=== PATIENT | female | born 1940 | race African-American/Black ===

== ENCOUNTER 2017-05-08 12:59 | Inpatient (IN) | payer OTHER ==
[~2017-05-08] VITALS: Ht 162.6 cm; Wt 75.8 kg
[2017-05-08 14:27] LABS: BASOPHILS % 0.2 % (0.0-2.0); EOSINOPHILS % 2.6 % (0.0-5.0); HEMATOCRIT. 36.9 % (36.0-48.0); HEMOGLOBIN. 12.1 g/dL (12.0-16.0); LYMPHOCYTES % 8.4 % (20.0-50.0); MEAN CORPUSCULAR HEMOGLOBIN 27.9 pg (28.0-32.0); MEAN CORPUSCULAR VOLUME 85.4 fL (81.0-99.0); MEAN PLATELET VOLUME 7.5 fl (7.4-10.4); MONOCYTES % 7.5 % (2.0-8.0); NEUTROPHILS % 81.3 % (40.0-76.0); PLATELET 231 x1000/uL (130-400); RED BLOOD CELL COUNT 4.33 mill/uL (4.2-5.4); RED CELL DISTRIBUTION WIDTH 16.3 % (11.6-14.6)
[2017-05-08 14:33] LABS: CHLORIDE 103 mEq/L (98-107); CREATINE KINASE 144 IU/L (26-192); ETHANOL BLOOD < 10 mg/dL
[2017-05-08] MEDS ORDERED: ASPIRIN 81MG TABLET PO ONE (15:15)
[2017-05-08 15:53] LABS: CLARITY URINE CLEAR (CLEAR); COLOR URINE YELLOW (YELLOW); KETONES URINE NEGATIVE (NEGATIVE); LEUKOCYTE ESTERASE URINE NEGATIVE (NEGATIVE); NITRITE URINE NEGATIVE (NEGATIVE); OCCULT BLOOD URINE NEGATIVE (NEGATIVE); PROTEIN URINE NEGATIVE (NEGATIVE); SPECIFIC GRAVITY URINE 1.017 (1.005-1.030); UROBILINOGEN URINE 0.2 E.U./dL (0.2-1.0)
[2017-05-08] MEDS ORDERED: DIPHENHYDRAMINE 50MG/ML VIAL IV PRN (16:00)
[2017-05-08] MEDS ORDERED: TRAMADOL 50MG TABLET PO PRN (16:00)
[2017-05-08] MEDS ORDERED: ZOLPIDEM TARTRATE 5MG TABLET PO PRN (16:00)
[2017-05-08] MEDS ORDERED: NITROGLYCERIN 0.4MG TABLET SL SL PRN (16:00)
[2017-05-08] MEDS ORDERED: DOCUSATE SODIUM 100MG CAPSULE PO PRN (16:00)
[2017-05-08] MEDS ORDERED: ONDANSETRON HCL 4MG/2ML INJ IV PRN (16:00)
[2017-05-08] MEDS ORDERED: MAGNESIUM/ALUMINUM HYDROXIDE/SIMETHICONE 30ML UDC PO PRN (16:00)
[2017-05-08] MEDS ORDERED: NA PHOS,M-B/NA PHOS,DI-BA ENEMA 118ML PR PRN (16:00)
[2017-05-08] MEDS ORDERED: CLONIDINE 0.1MG TABLET PO PRN (16:00)
[2017-05-08] MEDS ORDERED: GUAIFENESIN 200MG/10ML SUGAR FREE UDC PO PRN (16:00)
[2017-05-08] MEDS ORDERED: POTASSIUM CHLORIDE 20MEQ TABLET SR PO ONE (16:15)
[2017-05-08] MEDS ORDERED: POTASSIUM CHLORIDE 20MEQ TABLET SR PO NR (16:45)
[2017-05-08 18:39] LABS: *AMPHETAMINES SCREEN URINE NEGATIVE (NEGATIVE); *BARBITURATES SCREEN URINE NEGATIVE (NEGATIVE); *BENZODIAZEPINES SCREEN URINE NEGATIVE (NEGATIVE); *COCAINE SCREEN URINE NEGATIVE (NEGATIVE); CANNABINOID URINE SCREEN NEGATIVE (NEGATIVE); METHADONE URINE SCREEN NEGATIVE (NEGATIVE); OPIATES URINE SCREEN NEGATIVE (NEGATIVE); PHENCYCLIDINE URINE SCREEN NEGATIVE (NEGATIVE)
[2017-05-08] MEDS: SODIUM CHLORIDE 0.9% 1,000 ML IV SCH (20:00)
[2017-05-08 20:35] VITALS: BP 145/69
[2017-05-08] MEDS: FAMOTIDINE 20MG/2ML VIAL IV SCH (21:48)
[2017-05-08] MEDS ORDERED: LEVOFLOXACIN 500MG PREMIX 100 ML IV SCH (22:00)
[2017-05-08] MEDS: ENOXAPARIN 40MG/0.4ML SYR SUBCUT SCH (22:51)
[2017-05-08] MEDS ORDERED: KCL 20MEQ/100ML PREMIX 100 ML IV NR (23:00)
[2017-05-08] MEDS ORDERED: CEFTRIAXONE 1 G PREMIX 50 ML IV SCH (23:00)
[2017-05-08 23:24] VITALS: BP 145/69
[2017-05-08 23:49] LABS: CREATINE KINASE MB FRACTION 3.2 ng/mL (0.5-3.6)
[2017-05-09] VITALS: BP 122/64
[2017-05-09] MEDS ORDERED: ESOM20CA PO (00:49)
[2017-05-09] MEDS ORDERED: ATEN50TA PO (00:49)
[2017-05-09] MEDS ORDERED: OMEP20CA10 PO (00:49)
[2017-05-09] MEDS ORDERED: POTA10TA15 PO (00:49)
[2017-05-09] MEDS ORDERED: FURO20TA4 PO (00:49)
[2017-05-09] MEDS ORDERED: AMLO10TA80 PO (00:49)
[2017-05-09] MEDS ORDERED: LEVO100T9 PO (00:49)
[2017-05-09] MEDS ORDERED: LOSA50TA20 PO (00:49)
[2017-05-09] MEDS ORDERED: PRED5TAB48 PO (00:49)
[2017-05-09 04:00] VITALS: BP 121/48
[2017-05-09 07:32] LABS: CREATINE KINASE MB FRACTION 1.3 ng/mL (0.5-3.6)
[2017-05-09 08:00] VITALS: BP 140/78
[2017-05-09] MEDS: FAMOTIDINE 20MG/2ML VIAL IV SCH ×2 (09:23→22:07)
[2017-05-09] MEDS: ASPIRIN 325MG EC TABLET PO SCH (09:23)
[2017-05-09] MEDS: ZINC SULFATE 220 MG ( 50 ) CAPSULE PO SCH (09:23)
[2017-05-09] MEDS: IPRATROPIUM/ALBUTEROL 0.5-3(2.5)MG/3ML NEB INH PRN ×2 (10:35→15:29)
[2017-05-09 10:38] LABS: BASOPHILS % 0.5 % (0.0-2.0); EOSINOPHILS % 0.7 % (0.0-5.0); HEMATOCRIT. 36.6 % (36.0-48.0); HEMOGLOBIN. 11.8 g/dL (12.0-16.0); LYMPHOCYTES % 10.9 % (20.0-50.0); MEAN CORPUSCULAR HEMOGLOBIN 27.5 pg (28.0-32.0); MEAN CORPUSCULAR VOLUME 85.2 fL (81.0-99.0); MEAN PLATELET VOLUME 8.4 fl (7.4-10.4); MONOCYTES % 8.8 % (2.0-8.0); NEUTROPHILS % 79.1 % (40.0-76.0); PLATELET 228 x1000/uL (130-400)
[2017-05-09 10:57] LABS: CHLORIDE 107 mEq/L (98-107)
[2017-05-09 12:00] VITALS: BP 136/78
[2017-05-09 16:00] VITALS: BP 151/70
[2017-05-09] MEDS: SODIUM CHLORIDE 0.9% 1,000 ML IV SCH ×2 (17:57→22:10)
[2017-05-09 20:00] VITALS: BP 149/73
[2017-05-09] MEDS: ENOXAPARIN 40MG/0.4ML SYR SUBCUT SCH (22:08)
[2017-05-09] MEDS: ACETAMINOPHEN 325MG TABLET PO PRN (22:19)
[2017-05-09] MEDS ORDERED: LEVOFLOXACIN 500MG PREMIX 100 ML IV SCH (23:00)
[2017-05-10] VITALS (7 sets, daily range): BP systolic 142–154; BP diastolic 77–89
[2017-05-10] MEDS: ASPIRIN 325MG EC TABLET PO SCH (09:28)
[2017-05-10] MEDS: ZINC SULFATE 220 MG ( 50 ) CAPSULE PO SCH (09:28)
[2017-05-10] MEDS: FAMOTIDINE 20MG/2ML VIAL IV SCH (09:29)
[2017-05-10] MEDS ORDERED: VANCOMYCIN 1500MG in DEXTROSE 5% WATER 250ML IV NR (13:00)
[2017-05-10] MEDS ORDERED: CEFTRIAXONE 1 G PREMIX 50 ML IV SCH (14:00)
[2017-05-10] MEDS: SODIUM CHLORIDE 0.9% 1,000 ML IV SCH (14:14)
[2017-05-10] MEDS: ACETAMINOPHEN 325MG TABLET PO PRN (20:57)
[2017-05-10] MEDS ORDERED: LEVOFLOXACIN 500MG TABLET PO SCH (21:00)
[2017-05-11] MEDS ORDERED: VANCOMYCIN 1 G PREMIX 200 ML IV SCH (06:00)
[2017-05-11] MEDS ORDERED: FAMOTIDINE 20MG/2ML VIAL IV SCH (09:00)
== END 2017-05-10 21:39 | disposition short-term general hospital (02) | DRG 871 ==
LOC: ER 13:10 → 8WST 15:42 → EDBEDREQ 15:47 → SUPCPDRO 16:33 → ENRESERV 19:07 → 8WST 05-09 23:39
PROVIDERS: ADMIT Internal Medicine; ATTEND Internal Medicine
DX: A41.9 Sepsis, unspecified organism (principal); G93.40 Encephalopathy, unspecified; I21.4 Non-ST elevation (NSTEMI) myocardial infarction; E03.9 Hypothyroidism, unspecified; E87.6 Hypokalemia; I10 Essential (primary) hypertension; Z88.0 Allergy status to penicillin
CPT/HCPCS: 36415; 71045; 80061; 80305; 82140; 82550; 82553; 82962; 83036; 83605; 83735; 83880; 84443; 84484; 93005; 93306; 93970; 94640; 94664; 99285; G0482; J0696; J1650; J1956; J3370; J3480; J3490; J7030; J7060; J7620

== ENCOUNTER 2017-11-23 16:02 | Inpatient (IN) | payer OTHER ==
[2017-11-23] VITALS: BP 150/96
[~2017-11-23] VITALS: Ht 162.6 cm; Wt 96.6 kg
[~2017-11-23 16:02] MED LIST: AMLO10TA80 PO; ATEN50TA PO; ESOM20CA PO; FURO20TA4 PO; LEVO100T9 PO; LOSA50TA20 PO; OMEP20CA10 PO; POTA10TA15 PO; PRED5TAB48 PO
[2017-11-23 17:26] LABS: BASOPHILS % 0.1 % (0.0-2.0); EOSINOPHILS % 0.5 % (0.0-5.0); HEMATOCRIT. 36.7 % (36.0-48.0); LYMPHOCYTES % 10.3 % (20.0-50.0); MEAN CORPUSCULAR HEMOGLOBIN 26.9 pg (28.0-32.0); MEAN CORPUSCULAR VOLUME 82.2 fL (81.0-99.0); MEAN PLATELET VOLUME 7.9 fl (7.4-10.4); MONOCYTES % 4.5 % (2.0-8.0); NEUTROPHILS % 84.6 % (40.0-76.0); PLATELET 192 x1000/uL (130-400); RED BLOOD CELL COUNT 4.47 mill/uL (4.2-5.4); RED CELL DISTRIBUTION WIDTH 19.5 % (11.6-14.6)
[2017-11-23 17:32] LABS: CHLORIDE 100 mEq/L (98-107)
[2017-11-23 17:33] LABS: INR 1.1; PROTHROMBIN TIME 11.2 sec (9.1-11.1)
[2017-11-23 17:45] LABS: CARBAMAZEPINE < 0.5 ug/mL (4-12); PHENOBARBITAL < 2.1 ug/mL (15.0-40.0); VALPROIC ACID < 3.0 ug/mL (50-100)
[2017-11-23] MEDS ORDERED: POTASSIUM CHLORIDE INJ 40 MEQ in DEXT 5% WATER 500 ML IV ONE (18:00)
[2017-11-23] MEDS ORDERED: POTASSIUM CHLORIDE 20MEQ TABLET SR PO ONE (18:00)
[2017-11-23] MEDS ORDERED: SODIUM CHLORIDE 0.9% 1000ML BAG (SEPSIS BOLUS) IV ONE (18:00)
[2017-11-23] MEDS ORDERED: CEFTRIAXONE SODIUM 1 G/VIAL IM ONE (18:15)
[2017-11-23] MEDS ORDERED: MORPHINE SULFATE 2 MG/ML CPJ (NOT FOR IM USE) IV ONE (18:15)
[2017-11-23] MEDS ORDERED: HYDROMORPHONE HCL/PF 2MG/ML CPJ IV PRN (20:30)
[2017-11-23] MEDS ORDERED: ENOXAPARIN 40MG/0.4ML SYR SUBCUT SCH (20:30)
[2017-11-23] MEDS ORDERED: LORAZEPAM 2MG/ML CPJ IV PRN (20:30)
[2017-11-23] MEDS ORDERED: CLONIDINE 0.1MG TABLET PO PRN (20:30)
[2017-11-23] MEDS ORDERED: ONDANSETRON HCL 4MG/2ML VIAL IV PRN (20:30)
[2017-11-23 23:40] VITALS: BP 150/96
[2017-11-23 23:41] LABS: CLARITY URINE CLEAR (CLEAR); COLOR URINE YELLOW (YELLOW); KETONES URINE NEGATIVE (NEGATIVE); LEUKOCYTE ESTERASE URINE NEGATIVE (NEGATIVE); NITRITE URINE NEGATIVE (NEGATIVE); OCCULT BLOOD URINE NEGATIVE (NEGATIVE); PH URINE 8.5 (4.5-8.0); PROTEIN URINE NEGATIVE (NEGATIVE); SPECIFIC GRAVITY URINE 1.017 (1.005-1.030)
[2017-11-23 23:51] LABS: METHADONE URINE SCREEN NEGATIVE (NEGATIVE); OPIATES URINE SCREEN PRESUMTIVE POSITIVE (NEGATIVE); PHENCYCLIDINE URINE SCREEN NEGATIVE (NEGATIVE)
[2017-11-23 23:52] LABS: *AMPHETAMINES SCREEN URINE NEGATIVE (NEGATIVE); *BARBITURATES SCREEN URINE NEGATIVE (NEGATIVE); *BENZODIAZEPINES SCREEN URINE NEGATIVE (NEGATIVE); *COCAINE SCREEN URINE NEGATIVE (NEGATIVE); CANNABINOID URINE SCREEN NEGATIVE (NEGATIVE)
[2017-11-24] MEDS: HYDROCODONE/ACETAMINOPHEN 5/325MG TABLET PO PRN ×3 (02:19→17:26)
[2017-11-24 04:00] VITALS: BP 134/85
[2017-11-24] MEDS ORDERED: DIPHENHYDRAMINE 50MG/ML VIAL IM PRN (05:15)
[2017-11-24 06:25] LABS: CHLORIDE 104 mEq/L (98-107)
[2017-11-24 06:31] LABS: PHOSPHORUS 2.9 mg/dL (2.5-4.9)
[2017-11-24 06:34] LABS: CREATINE KINASE 600 IU/L (26-192)
[2017-11-24 07:12] LABS: CREATINE KINASE MB FRACTION 5.4 ng/mL (0.5-3.6)
[2017-11-24 07:40] LABS: BASOPHILS % 0.3 % (0.0-2.0); EOSINOPHILS % 1.1 % (0.0-5.0); HEMATOCRIT. 35.5 % (36.0-48.0); HEMOGLOBIN. 11.5 g/dL (12.0-16.0); LYMPHOCYTES % 13.1 % (20.0-50.0); MEAN CORPUSCULAR HEMOGLOBIN 26.8 pg (28.0-32.0); MEAN CORPUSCULAR VOLUME 82.9 fL (81.0-99.0); MEAN PLATELET VOLUME 8.2 fl (7.4-10.4); MONOCYTES % 6.9 % (2.0-8.0); NEUTROPHILS % 78.6 % (40.0-76.0); PLATELET 183 x1000/uL (130-400); RED BLOOD CELL COUNT 4.28 mill/uL (4.2-5.4)
[2017-11-24 08:00] VITALS: BP 147/83
[2017-11-24] MEDS: POTASSIUM CHLORIDE 20MEQ TABLET SR PO SCH ×3 (09:00→17:26)
[2017-11-24] MEDS: ENOXAPARIN 30MG/0.3ML SYR SUBCUT SCH ×2 (09:50→20:46)
[2017-11-24] MEDS: CLOPIDOGREL 75MG TABLET PO SCH ×4 (09:50→13:35)
[2017-11-24] MEDS ORDERED: OMEPRAZOLE 20MG CAPSULE EXTENDED RELEASE PO SCH (11:15)
[2017-11-24] MEDS ORDERED: AMLODIPINE 10MG TABLET PO SCH (11:15)
[2017-11-24] MEDS ORDERED: LEVOTHYROXINE SODIUM 100MCG TABLET PO SCH (12:00)
[2017-11-24 12:20] VITALS: BP 147/84
[2017-11-24] MEDS: ACETAMINOPHEN 325MG TABLET PO PRN ×2 (13:20→20:45)
[2017-11-24 16:06] VITALS: BP 161/88
[2017-11-24] MEDS ORDERED: ASPIRIN 81MG TABLET PO SCH (17:00)
[2017-11-24 20:00] VITALS: BP 152/89
[2017-11-24 20:48] VITALS: BP 152/89
[2017-11-24] MEDS ORDERED: LEVETIRACETAM 500MG TABLET PO SCH (21:00)
== END 2017-11-24 22:17 | disposition short-term general hospital (02) | DRG 64 ==
LOC: ER 16:02 → EDBEDREQSVC 17:55 → EDBEDREQTM 17:55 → EDBEDREQ 17:55 → 5WST 18:50 → EDBEDREQTM 18:51 → EDBEDREQ 18:51 → ENRESERV 20:43
PROVIDERS: ADMIT Internal Medicine Nephrology; ATTEND Internal Medicine Nephrology
DX: I63.9 Cerebral infarction, unspecified (principal); G92 Toxic encephalopathy; G40.89 Other seizures; E03.9 Hypothyroidism, unspecified; E66.01 Morbid (severe) obesity due to excess calories; E78.00 Pure hypercholesterolemia, unspecified; E78.5 Hyperlipidemia, unspecified; Z96.653 Presence of artificial knee joint, bilateral; M54.5 Low back pain; E87.6 Hypokalemia; G93.89 Other specified disorders of brain; E05.90 Thyrotoxicosis, unspecified without thyrotoxic crisis or storm; I10 Essential (primary) hypertension; K21.9 Gastro-esophageal reflux disease without esophagitis; M13.0 Polyarthritis, unspecified; Z68.36 Body mass index [BMI] 36.0-36.9, adult; Z86.73 Personal history of transient ischemic attack (TIA), and cerebral infarction without residual deficits; Z88.0 Allergy status to penicillin
CPT/HCPCS: 36415; 70450; 70551; 71045; 80048; 80053; 80156; 80165; 80184; 80185; 80305; 81003; 82550; 82553; 83605; 83735; 84100; 84443; 84484; 85025; 85610; 87040; 93005; 93306; 96372; 96374; 96375; 97162; 99285; J0696; J1200; J1650; J2270; J2405; J3480; J7030; J7040; J7060

== ENCOUNTER 2017-11-25 22:41 | Emergency (ER) | payer OTHER ==
[~2017-11-25] VITALS: Ht 167.6 cm; Wt 100.0 kg
[2017-11-25] MEDS ORDERED: HYDROCODONE/ACETAMINOPHEN 10/325MG TABLET PO ONE (23:30)
[2017-11-26 02:27] VITALS: BP 158/92
== END 2017-11-26 02:52 | disposition home or self-care (01) ==
LOC: ER 22:57
DX: S52.571A Other intraarticular fracture of lower end of right radius, initial encounter for closed fracture (principal); G89.29 Other chronic pain; M54.5 Low back pain; I48.91 Unspecified atrial fibrillation; G40.909 Epilepsy, unspecified, not intractable, without status epilepticus; F03.90 Unspecified dementia, unspecified severity, without behavioral disturbance, psychotic disturbance, mood disturbance, and anxiety; R03.0 Elevated blood-pressure reading, without diagnosis of hypertension; Z91.81 History of falling; Z79.01 Long term (current) use of anticoagulants; Z88.0 Allergy status to penicillin; Z98.1 Arthrodesis status; Z86.73 Personal history of transient ischemic attack (TIA), and cerebral infarction without residual deficits; W01.0XXA Fall on same level from slipping, tripping and stumbling without subsequent striking against object, initial encounter; Y93.89 Activity, other specified; Y92.018 Other place in single-family (private) house as the place of occurrence of the external cause
CPT/HCPCS: 29125; 70450; 71045; 72125; 72170; 73110; 99284

== ENCOUNTER 2018-01-14 08:23 | Inpatient (IN) | payer OTHER ==
[~2018-01-14] VITALS: Ht 165.1 cm; Wt 88.5 kg
[2018-01-14] MEDS ORDERED: LORAZEPAM 2MG/ML CPJ ONE (08:40)
[2018-01-14] MEDS ORDERED: LORAZEPAM 2MG/ML CPJ IV ONE (08:45)
[2018-01-14 10:30] LABS: CLARITY URINE CLEAR (CLEAR); COLOR URINE YELLOW (YELLOW); KETONES URINE TRACE (NEGATIVE); LEUKOCYTE ESTERASE URINE NEGATIVE (NEGATIVE); NITRITE URINE NEGATIVE (NEGATIVE); OCCULT BLOOD URINE 1+ (NEGATIVE); PH URINE 5.5 (4.5-8.0); PROTEIN URINE 3+ (NEGATIVE); SPECIFIC GRAVITY URINE 1.016 (1.005-1.030); UROBILINOGEN URINE 0.2 E.U./dL (0.2-1.0)
[2018-01-14 10:31] LABS: BASOPHILS % 0.5 % (0.0-2.0); EOSINOPHILS % 1.2 % (0.0-5.0); HEMATOCRIT. 44.5 % (36.0-48.0); HEMOGLOBIN. 14.1 g/dL (12.0-16.0); LYMPHOCYTES % 32.9 % (20.0-50.0); MEAN CORPUSCULAR HEMOGLOBIN 28.2 pg (28.0-32.0); MEAN CORPUSCULAR VOLUME 89.2 fL (81.0-99.0); MEAN PLATELET VOLUME 8.6 fl (7.4-10.4); MONOCYTES % 6.1 % (2.0-8.0); NEUTROPHILS % 59.3 % (40.0-76.0); PLATELET 223 x1000/uL (130-400); RED BLOOD CELL COUNT 4.99 mill/uL (4.2-5.4); RED CELL DISTRIBUTION WIDTH 18.6 % (11.6-14.6)
[2018-01-14 10:36] LABS: INR 1.1; PROTHROMBIN TIME 11.1 sec (9.1-11.1)
[2018-01-14 10:39] LABS: CHLORIDE 109 mEq/L (98-107); ETHANOL BLOOD < 10 mg/dL
[2018-01-14 10:49] LABS: *AMPHETAMINES SCREEN URINE NEGATIVE (NEGATIVE); *BARBITURATES SCREEN URINE NEGATIVE (NEGATIVE); *BENZODIAZEPINES SCREEN URINE NEGATIVE (NEGATIVE); *COCAINE SCREEN URINE NEGATIVE (NEGATIVE)
[2018-01-14 10:50] LABS: CANNABINOID URINE SCREEN NEGATIVE (NEGATIVE); METHADONE URINE SCREEN NEGATIVE (NEGATIVE); OPIATES URINE SCREEN PRESUMTIVE POSITIVE (NEGATIVE); PHENCYCLIDINE URINE SCREEN NEGATIVE (NEGATIVE)
[2018-01-14] MEDS ORDERED: ASPIRIN 81MG TABLET PO ONE (11:45)
[2018-01-14] MEDS: SODIUM CHLORIDE 0.45% 1,000 ML IV SCH (15:55)
[2018-01-14] MEDS ORDERED: DIPHENHYDRAMINE 50MG/ML VIAL IV PRN (16:00)
[2018-01-14] MEDS ORDERED: ACETAMINOPHEN 325MG TABLET PO PRN (16:00)
[2018-01-14] MEDS ORDERED: DOCUSATE SODIUM 100MG CAPSULE PO PRN (16:00)
[2018-01-14] MEDS ORDERED: MORPHINE SULFATE 2 MG/ML CPJ (NOT FOR IM USE) IV PRN (16:00)
[2018-01-14] MEDS ORDERED: HYDROCODONE/ACETAMINOPHEN 5/325MG TABLET PO PRN (16:00)
[2018-01-14] MEDS ORDERED: NA PHOS,M-B/NA PHOS,DI-BA ENEMA 118ML PR PRN (16:00)
[2018-01-14] MEDS ORDERED: MAGNESIUM/ALUMINUM HYDROXIDE/SIMETHICONE 30ML UDC PO PRN (16:00)
[2018-01-14] MEDS ORDERED: GUAIFENESIN 200MG/10ML SUGAR FREE UDC PO PRN (16:00)
[2018-01-14] MEDS ORDERED: LORAZEPAM 2MG/ML CPJ IV PRN (16:00)
[2018-01-14] MEDS ORDERED: IPRATROPIUM/ALBUTEROL 0.5-3(2.5)MG/3ML NEB INH PRN (16:00)
[2018-01-14] MEDS ORDERED: LEVOFLOXACIN 500MG PREMIX 100 ML IV SCH (16:00)
[2018-01-14] MEDS ORDERED: ONDANSETRON HCL 4MG/2ML INJ IV PRN (16:00)
[2018-01-14] MEDS ORDERED: CLONIDINE 0.1MG TABLET PO PRN (16:00)
[2018-01-14 19:36] LABS: CHLORIDE 104 mEq/L (98-107)
[2018-01-15] VITALS (8 sets, daily range): BP systolic 129–159; BP diastolic 75–98
[2018-01-15] MEDS ORDERED: ENOXAPARIN 40MG/0.4ML SYR SUBCUT NR (04:30)
[2018-01-15 06:56] LABS: BASOPHILS % 0.2 % (0.0-2.0); EOSINOPHILS % 0.9 % (0.0-5.0); HEMATOCRIT. 37.3 % (36.0-48.0); HEMOGLOBIN. 12.2 g/dL (12.0-16.0); LYMPHOCYTES % 14.9 % (20.0-50.0); MEAN CORPUSCULAR HEMOGLOBIN 27.8 pg (28.0-32.0); MEAN CORPUSCULAR VOLUME 84.8 fL (81.0-99.0); MEAN PLATELET VOLUME 7.6 fl (7.4-10.4); MONOCYTES % 6.1 % (2.0-8.0); NEUTROPHILS % 77.9 % (40.0-76.0); PLATELET 195 x1000/uL (130-400); RED CELL DISTRIBUTION WIDTH 17.6 % (11.6-14.6)
[2018-01-15 07:06] LABS: CHLORIDE 104 mEq/L (98-107)
[2018-01-15 07:11] LABS: HDL CHOLESTEROL 62 mg/dL (40-59); LDL CHOLESTEROL 42 mg/dL (5-100)
[2018-01-15 07:16] LABS: T4 FREE 1.14 ng/dL (0.76-1.46)
[2018-01-15] MEDS ORDERED: POTASSIUM CHLORIDE INJ 40 MEQ in DEXT 5% WATER 250 ML IV NR ×2 (08:30→14:00)
[2018-01-15] MEDS ORDERED: LEVOFLOXACIN 500MG PREMIX 100 ML IV SCH (11:00)
[2018-01-15] MEDS: SODIUM CHLORIDE 0.45% 1,000 ML IV SCH (11:55)
[2018-01-15] MEDS: ASPIRIN 81MG EC TABLET PO SCH (17:48)
[2018-01-16 04:00] VITALS: BP 135/97
[2018-01-16 08:00] VITALS: BP 143/87
[2018-01-16] MEDS: ASPIRIN 81MG EC TABLET PO SCH (08:44)
[2018-01-16] MEDS: SODIUM CHLORIDE 0.45% 1,000 ML IV SCH (08:45)
[2018-01-16] MEDS ORDERED: ENOXAPARIN 40MG/0.4ML SYR SUBCUT SCH (09:00)
[2018-01-16] MEDS ORDERED: LEVOFLOXACIN 250MG PREMIX 50 ML IV SCH (11:00)
[2018-01-16 12:00] VITALS: BP 145/74
[2018-01-16 16:00] VITALS: BP 121/70
[2018-01-16 20:00] VITALS: BP 158/84
[2018-01-16 20:12] VITALS: BP 158/84
== END 2018-01-16 22:25 | disposition short-term general hospital (02) | DRG 101 ==
LOC: ER 08:32 → 7WST 11:50 → ENRESERV 01-15 07:19 → CANBEDREQ 01-15 08:34
PROVIDERS: ADMIT Internal Medicine; ATTEND Internal Medicine
DX: G40.89 Other seizures (principal); R65.10 Systemic inflammatory response syndrome (SIRS) of non-infectious origin without acute organ dysfunction; E87.2 Acidosis; R47.01 Aphasia; E86.0 Dehydration; E11.9 Type 2 diabetes mellitus without complications; E87.6 Hypokalemia; F03.90 Unspecified dementia, unspecified severity, without behavioral disturbance, psychotic disturbance, mood disturbance, and anxiety; I48.91 Unspecified atrial fibrillation; I10 Essential (primary) hypertension; Z86.73 Personal history of transient ischemic attack (TIA), and cerebral infarction without residual deficits; Z79.899 Other long term (current) drug therapy; Z88.0 Allergy status to penicillin
CPT/HCPCS: 36415; 71045; 80048; 80061; 80305; 82962; 83605; 83880; 84132; 84439; 84443; 84484; 93005; 96372; 96374; 96376; 99285; G0482; J1650; J1956; J2060; J3480; J7060

== ENCOUNTER 2018-03-02 15:23 | Inpatient (IN) | payer OTHER ==
[~2018-03-02] VITALS: Ht 165.1 cm; Wt 97.6 kg
[2018-03-02 16:03] LABS: BASOPHILS % 0.3 % (0.0-2.0); EOSINOPHILS % 0.5 % (0.0-5.0); HEMATOCRIT. 36.5 % (36.0-48.0); HEMOGLOBIN. 12.2 g/dL (12.0-16.0); LYMPHOCYTES % 18.7 % (20.0-50.0); MEAN CORPUSCULAR HEMOGLOBIN 28.5 pg (28.0-32.0); MEAN CORPUSCULAR VOLUME 85.5 fL (81.0-99.0); MEAN PLATELET VOLUME 7.4 fl (7.4-10.4); MONOCYTES % 8.5 % (2.0-8.0); PLATELET 217 x1000/uL (130-400); RED BLOOD CELL COUNT 4.27 mill/uL (4.2-5.4); RED CELL DISTRIBUTION WIDTH 16.1 % (11.6-14.6)
[2018-03-02 16:09] LABS: CHLORIDE 100 mEq/L (98-107)
[2018-03-02 16:10] LABS: INR 1.2; PROTHROMBIN TIME 11.9 sec (9.1-11.1)
[2018-03-02 16:14] LABS: ETHANOL BLOOD < 10 mg/dL
[2018-03-02] MEDS ORDERED: LORAZEPAM 2MG/ML CPJ IV ONE (16:15)
[2018-03-02 16:17] LABS: LDL CHOLESTEROL 70 mg/dL (5-100)
[2018-03-02] MEDS ORDERED: LORAZEPAM 2MG/ML CPJ ONE (16:17)
[2018-03-02] MEDS ORDERED: ASPIRIN 300MG SUPP PR ONE (16:30)
[2018-03-02 16:49] LABS: CLARITY URINE CLEAR (CLEAR); COLOR URINE YELLOW (YELLOW); KETONES URINE NEGATIVE (NEGATIVE); LEUKOCYTE ESTERASE URINE NEGATIVE (NEGATIVE); NITRITE URINE NEGATIVE (NEGATIVE); OCCULT BLOOD URINE TRACE (NEGATIVE); PROTEIN URINE 1+ (NEGATIVE); SPECIFIC GRAVITY URINE 1.008 (1.005-1.030); UROBILINOGEN URINE 0.2 E.U./dL (0.2-1.0)
[2018-03-02 17:01] LABS: *AMPHETAMINES SCREEN URINE NEGATIVE (NEGATIVE); *BARBITURATES SCREEN URINE NEGATIVE (NEGATIVE); *BENZODIAZEPINES SCREEN URINE NEGATIVE (NEGATIVE); *COCAINE SCREEN URINE NEGATIVE (NEGATIVE); OPIATES URINE SCREEN NEGATIVE (NEGATIVE); PHENCYCLIDINE URINE SCREEN NEGATIVE (NEGATIVE)
[2018-03-02 17:02] LABS: CANNABINOID URINE SCREEN NEGATIVE (NEGATIVE); METHADONE URINE SCREEN NEGATIVE (NEGATIVE)
[2018-03-02] MEDS ORDERED: LEVETIRACETAM 1000MG/100ML 100 ML IV ONE (17:30)
[2018-03-02] MEDS: LEVETIRACETAM 1000MG/100ML 100 ML IV NR ×2 (17:55→18:16)
[2018-03-02] MEDS ORDERED: ENOXAPARIN 80MG/0.8ML SYR SUBCUT ONE (18:00)
[2018-03-02 22:00] VITALS: BP 153/96
[2018-03-02] MEDS ORDERED: ONDANSETRON HCL 4MG/2ML INJ IV PRN (22:00)
[2018-03-02] MEDS ORDERED: LORAZEPAM 2MG/ML CPJ IV PRN (22:00)
[2018-03-02] MEDS ORDERED: NA PHOS,M-B/NA PHOS,DI-BA ENEMA 118ML PR PRN (22:00)
[2018-03-02] MEDS ORDERED: CLONIDINE 0.1MG TABLET PO PRN (22:00)
[2018-03-02] MEDS ORDERED: DOCUSATE SODIUM 100MG CAPSULE PO PRN (22:00)
[2018-03-02] MEDS ORDERED: ACETAMINOPHEN 325MG TABLET PO PRN (22:00)
[2018-03-02] MEDS ORDERED: GUAIFENESIN 200MG/10ML SUGAR FREE UDC PO PRN (22:00)
[2018-03-02] MEDS ORDERED: MAGNESIUM/ALUMINUM HYDROXIDE/SIMETHICONE 30ML UDC PO PRN (22:00)
[2018-03-02] MEDS ORDERED: KCL 10MEQ/50ML PREMIX 50 ML IV NR (23:30)
[2018-03-03] VITALS (16 sets, daily range): BP systolic 105–164; BP diastolic 44–92
[2018-03-03] MEDS ORDERED: LEVETIRACETAM 500 MG in SODIUM CHLORIDE 0.9% 100 ML IV NR ×2
[2018-03-03] MEDS ORDERED: REGADENOSON 0.4 MG/5 ML IV ONE ×2 (07:15→13:44)
[2018-03-03 07:44] LABS: BASOPHILS % 0.4 % (0.0-2.0); EOSINOPHILS % 1.3 % (0.0-5.0); HEMATOCRIT. 34.1 % (36.0-48.0); LYMPHOCYTES % 19.8 % (20.0-50.0); MEAN CORPUSCULAR HEMOGLOBIN 27.8 pg (28.0-32.0); MEAN CORPUSCULAR VOLUME 85.9 fL (81.0-99.0); MONOCYTES % 8.9 % (2.0-8.0); NEUTROPHILS % 69.6 % (40.0-76.0); PLATELET 199 x1000/uL (130-400); RED BLOOD CELL COUNT 3.97 mill/uL (4.2-5.4); RED CELL DISTRIBUTION WIDTH 15.8 % (11.6-14.6)
[2018-03-03 07:49] LABS: CHLORIDE 105 mEq/L (98-107)
[2018-03-03 08:14] LABS: CREATINE KINASE 313 IU/L (26-192); T4 FREE 1.09 ng/dL (0.76-1.46)
[2018-03-03] MEDS ORDERED: POTASSIUM CHLORIDE 20MEQ TABLET SR PO SCH ×2 (08:45)
[2018-03-03] MEDS: METOPROLOL TARTRATE 25MG TABLET PO SCH ×2 (08:50→21:28)
[2018-03-03] MEDS ORDERED: LISINOPRIL 10MG TABLET PO SCH (09:00)
[2018-03-03] MEDS ORDERED: AMLODIPINE 10MG TABLET PO SCH (09:00)
[2018-03-03] MEDS ORDERED: ASPIRIN 81MG TABLET PO SCH (09:00)
[2018-03-03] MEDS ORDERED: CLOPIDOGREL 75MG TABLET PO SCH (10:00)
[2018-03-03] MEDS: ENOXAPARIN 100MG/ML SYR SUBCUT SCH ×2 (12:43→21:34)
[2018-03-03 13:22] LABS: CREATINE KINASE MB FRACTION 3.7 ng/mL (0.5-3.6)
[2018-03-03] MEDS ORDERED: LEVETIRACETAM 500MG TABLET PO SCH (21:00)
== END 2018-03-03 22:15 | disposition short-term general hospital (02) | DRG 101 ==
LOC: ER 15:23 → 3WST 17:25 → EDBEDREQSVC 17:29 → EDBEDREQ 17:29 → EDBEDREQTM 17:29 → ENRESERV 20:37 → SUPCPDRO 21:46
PROVIDERS: ADMIT Hospitalist; ATTEND Hospitalist
DX: G40.802 Other epilepsy, not intractable, without status epilepticus (principal); E03.9 Hypothyroidism, unspecified; E78.00 Pure hypercholesterolemia, unspecified; I48.91 Unspecified atrial fibrillation; E78.5 Hyperlipidemia, unspecified; I10 Essential (primary) hypertension; K21.9 Gastro-esophageal reflux disease without esophagitis; Z86.73 Personal history of transient ischemic attack (TIA), and cerebral infarction without residual deficits; Z88.0 Allergy status to penicillin; Z79.899 Other long term (current) drug therapy; E87.6 Hypokalemia
CPT/HCPCS: 36415; 70544; 70553; 71045; 71275; 78452; 80061; 80305; 82550; 82553; 82962; 83036; 83721; 83735; 83880; 84132; 84439; 84443; 84484; 85379; 93005; 93017; 93306; 93970; 96365; 96375; 99285; A9500; G0482; J1650; J1953; J2060; J2785; J3480; J7050

== ENCOUNTER 2019-07-20 20:17 | Emergency (ER) | payer OTHER ==
[~2019-07-20] VITALS: Ht 160 cm; Wt 64.0 kg
[~2019-07-20 20:17] MED LIST changes: -LOSA50TA20 PO; +LOSA50TA41 PO; -OMEP20CA10 PO; +OMEP20CA14 PO
[2019-07-20 22:09] LABS: BASOPHILS % 0.2 % (0.0-2.0); EOSINOPHILS % 0.8 % (0.0-5.0); HEMATOCRIT. 40.4 % (36.0-48.0); HEMOGLOBIN. 13.4 g/dL (12.0-16.0); LYMPHOCYTES % 20.7 % (20.0-50.0); MEAN CORPUSCULAR VOLUME 84.4 fL (81.0-99.0); MONOCYTES % 6.6 % (2.0-8.0); NEUTROPHILS % 71.7 % (40.0-76.0); PLATELET 189 x1000/uL (130-400); RED BLOOD CELL COUNT 4.79 mill/uL (4.2-5.4); RED CELL DISTRIBUTION WIDTH 17.1 % (11.6-14.6)
[2019-07-20 22:12] LABS: CLARITY URINE CLEAR (CLEAR); COLOR URINE YELLOW (YELLOW); KETONES URINE NEGATIVE (NEGATIVE); LEUKOCYTE ESTERASE URINE NEGATIVE (NEGATIVE); NITRITE URINE NEGATIVE (NEGATIVE); OCCULT BLOOD URINE TRACE (NEGATIVE); PROTEIN URINE 1+ (NEGATIVE); SPECIFIC GRAVITY URINE 1.005 (1.005-1.030); UROBILINOGEN URINE 0.2 E.U./dL (0.2-1.0)
[2019-07-20 22:16] LABS: CHLORIDE 107 mEq/L (98-107)
[2019-07-21 00:45] VITALS: BP 159/76
== END 2019-07-21 01:04 | disposition home or self-care (01) ==
LOC: ER 20:17
DX: G40.909 Epilepsy, unspecified, not intractable, without status epilepticus (principal); I16.0 Hypertensive urgency; K21.9 Gastro-esophageal reflux disease without esophagitis; E78.00 Pure hypercholesterolemia, unspecified; E03.9 Hypothyroidism, unspecified; I48.91 Unspecified atrial fibrillation; Z86.73 Personal history of transient ischemic attack (TIA), and cerebral infarction without residual deficits; Z79.01 Long term (current) use of anticoagulants; Z88.0 Allergy status to penicillin
CPT/HCPCS: 36415; 71045; 80053; 81003; 82962; 85025; 93005; 99285

== ENCOUNTER 2020-04-24 12:13 | Emergency (ER) | payer OTHER ==
[~2020-04-24] VITALS: Ht 165.1 cm; Wt 64.0 kg
[2020-04-24] MEDS ORDERED: BACITRACIN ZINC OINT UDPKT TOP ONE (13:15)
[2020-04-24] MEDS ORDERED: LIDOCAINE 1%/EPI 1:100,000 10 ML VIAL IJ ONE (13:15)
[2020-04-24] MEDS ORDERED: LIDOCAINE HCL/EPINEPHRINE 1%-EPI 1:100,000 20 ML VIAL INFIL NR (13:30)
[2020-04-24 15:35] VITALS: BP 140/63
== END 2020-04-24 15:37 | disposition home or self-care (01) ==
LOC: ER 12:13
DX: S01.81XA Laceration without foreign body of other part of head, initial encounter (principal); I48.91 Unspecified atrial fibrillation; I10 Essential (primary) hypertension; F03.90 Unspecified dementia, unspecified severity, without behavioral disturbance, psychotic disturbance, mood disturbance, and anxiety; K21.9 Gastro-esophageal reflux disease without esophagitis; E78.00 Pure hypercholesterolemia, unspecified; G40.909 Epilepsy, unspecified, not intractable, without status epilepticus; Z86.73 Personal history of transient ischemic attack (TIA), and cerebral infarction without residual deficits; Z79.01 Long term (current) use of anticoagulants; Z88.0 Allergy status to penicillin; W01.0XXA Fall on same level from slipping, tripping and stumbling without subsequent striking against object, initial encounter; Y93.89 Activity, other specified; Y92.89 Other specified places as the place of occurrence of the external cause
CPT/HCPCS: 12011; 70450; 72125; 72170; 93005; 99285; J3490

== ENCOUNTER 2020-09-20 14:19 | Emergency (ER) | payer OTHER ==
[~2020-09-20] VITALS: Ht 157.5 cm; Wt 45.5 kg
[2020-09-20 15:31] LABS: CLARITY URINE CLOUDY (CLEAR); COLOR URINE YELLOW (YELLOW); KETONES URINE NEGATIVE (NEGATIVE); LEUKOCYTE ESTERASE URINE 2+ (NEGATIVE); NITRITE URINE NEGATIVE (NEGATIVE); OCCULT BLOOD URINE TRACE (NEGATIVE); PROTEIN URINE NEGATIVE (NEGATIVE); SPECIFIC GRAVITY URINE 1.008 (1.005-1.030); UROBILINOGEN URINE 0.2 E.U./dL (0.2-1.0)
[2020-09-20 15:34] LABS: BASOPHILS % 0.4 % (0.0-2.0); EOSINOPHILS % 0.2 % (0.0-5.0); HEMATOCRIT. 40.2 % (36.0-48.0); HEMOGLOBIN. 13.3 g/dL (12.0-16.0); LYMPHOCYTES % 14.4 % (20.0-50.0); MEAN CORPUSCULAR HEMOGLOBIN 29.2 pg (28.0-32.0); MONOCYTES % 3.5 % (2.0-8.0); NEUTROPHILS % 81.5 % (40.0-76.0); PLATELET 123 x1000/uL (130-400); RED BLOOD CELL COUNT 4.57 mill/uL (4.2-5.4); RED CELL DISTRIBUTION WIDTH 15.5 % (11.6-14.6)
[2020-09-20 15:35] LABS: CHLORIDE 108 mEq/L (98-107)
[2020-09-20 15:38] LABS: ETHANOL BLOOD < 10 mg/dL
[2020-09-20 15:45] LABS: *BARBITURATES SCREEN URINE NEGATIVE (NEGATIVE)
[2020-09-20 15:46] LABS: *AMPHETAMINES SCREEN URINE NEGATIVE (NEGATIVE); *BENZODIAZEPINES SCREEN URINE NEGATIVE (NEGATIVE); *COCAINE SCREEN URINE NEGATIVE (NEGATIVE); METHADONE URINE SCREEN NEGATIVE (NEGATIVE); OPIATES URINE SCREEN NEGATIVE (NEGATIVE); PHENCYCLIDINE URINE SCREEN NEGATIVE (NEGATIVE)
[2020-09-20 15:47] LABS: CANNABINOID URINE SCREEN NEGATIVE (NEGATIVE)
[2020-09-20] MEDS ORDERED: SODIUM CHLORIDE 0.9% 500 ML IV ONE (16:15)
[2020-09-20] MEDS ORDERED: LEVOFLOXACIN 750MG PREMIX 150 ML IV ONE (16:15)
[2020-09-20 19:26] VITALS: BP 144/70
== END 2020-09-20 19:44 | disposition short-term general hospital (02) ==
LOC: ER 14:19
DX: I21.4 Non-ST elevation (NSTEMI) myocardial infarction (principal); E86.0 Dehydration; G40.909 Epilepsy, unspecified, not intractable, without status epilepticus; I69.351 Hemiplegia and hemiparesis following cerebral infarction affecting right dominant side; I48.91 Unspecified atrial fibrillation; Z79.01 Long term (current) use of anticoagulants; Z88.0 Allergy status to penicillin
CPT/HCPCS: 36415; 70450; 71045; 80053; 80305; 80307; 80320; 80329; 81003; 82140; 83605; 83690; 84443; 84484; 85025; 93005; 96365; 99285; J1956; J7040; G0480